=== PATIENT | female | born 1940 | race Hispanic/Latino ===

== ENCOUNTER 2017-10-23 21:17 | Observation (INO) | payer SELFPAY ==
[2017-10-23 21:21] VITALS: BP 171/83; PULSE 120; RESP 20; TEMP 37.4; O2SAT 100
[2017-10-23 22:15] VITALS: BP 159/63; PULSE 110; RESP 18; O2SAT 98
[2017-10-23] MEDS: SODIUM CHLORIDE 0.9% 1,000 ML 1000 ML IV (23:15)
--- NOTE | 2017-10-23 23:15 | DI.RAD.S_ITS ---
PROCEDURE: XR CHEST 1V INDICATIONS: suspected sepsis TECHNIQUE: One view of the chest was acquired. COMPARISON: None. FINDINGS: Surgical changes and devices: None. Lungs and pleura: No pleural effusions or pneumothorax. Lungs are clear. Mediastinum: Mediastinal contours appear normal. Heart size is normal. Aortic calcifications. Bones and chest wall: No suspicious bony lesions. Overlying soft tissues appear unremarkable. IMPRESSION: No acute cardiopulmonary abnormality Dictated by: Sudhir Burton M.D. on 10/24/2017 at 7:57 Approved by: Sudhir Burton M.D. on 10/24/2017 at 7:58
[2017-10-23 23:17] VITALS: BP 176/68; PULSE 107; RESP 22; TEMP 38.4; O2SAT 99
[2017-10-23 23:24] LABS: INR 1.2 (0.9-1.3); Prothrombin Time 13.4 SECONDS (10.1-12.7)
[2017-10-23 23:26] LABS: PTT Partial Thromboplastin Tim 26 SECONDS (26.4-36.2)
[2017-10-23 23:27] LABS: Appearance Urine UA SL CLOUDY; Bilirubin Urine UA NEGATIVE (NEGATIVE); Color Urine UA BROWN; Glucose Urine UA 2+ g/dL (Negative); Ketones Urine UA NEGATIVE (NEGATIVE); Leukocyte Esterase Urine UA 1+ (NEGATIVE); Nitrite Urine UA NEGATIVE (NEGATIVE); Occult Blood Urine UA 3+ (Negative); Protein Urine UA 2+ (Negative); Urobilinogen Urine UA 0.2 E.U./dL (0.2); pH Urine UA 6.5 (4.5-8.0)
[2017-10-23 23:28] LABS: Add Manual Diff / Slide Review NO; Basophils Percent Auto 0.2 % (0-2); Hematocrit 26.9 % (36-46); Hemoglobin 9.1 g/dL (12.0-16.0); Lactate (Lactic Acid) 0.9 mmol/L (0.7-2.1); Lymphocytes Percent Auto 6.6 % (25-40); Mean Corpuscular HGB Conc 33.7 % (30-36); Neutrophils Absolute Auto 13200 /uL (3000-5900); Neutrophils Percent Auto 88.2 % (50-75); Platelet Count 389 X10^3/uL (150-400); Red Blood Cell Count 3.13 X10^6/uL (4.0-5.2); Red Cell Distribution Width 13.8 % (11.6-14.8); White Blood Cell Count 14.9 X10^3/uL (4.5-11.0)
[2017-10-23 23:28] LABS: RBC Urine >100/HPF (0-5/HPF); Squamous Epithelial Cell Urine 0-1 /HPF; WBC Urine 30-100/HPF (0-5/HPF)
[2017-10-23 23:29] LABS: Bacteria Urine Moderate (10-30); Culture Indicated Urine Specimen Cultured
[2017-10-23 23:30] LABS: Alanine Aminotransferase 27 IU/L (9-52); Albumin 3.7 g/dL (3.5-5.0); Alkaline Phosphatase 102 U/L (38-126); Aspartate Aminotransferase 23 IU/L (14-36); BUN Creatinine Ratio 23.6 (6-22); Bilirubin Total 0.4 mg/dL (0.2-1.3); Calcium 8.8 mg/dL (8.4-10.2); Estimated Glomerular Filt Rate 36.4 mL/min (>60); Globulin 3.7 g/dL (1.7-4.1); Glucose 386 mg/dL (80-110); HEMOLYSIS < 15 (0-50); Lipase 69 U/L (23-300); Sodium 126 mmol/L (137-145); Total Protein 7.4 g/dL (6.3-8.2)
[2017-10-23 23:31] LABS: Potassium 5.6 mmol/L (3.4-5.1)
[2017-10-23 23:46] LABS: Procalcitonin 0.08 ng/mL (<0.5)
[2017-10-24] VITALS (23 sets, daily range): BP systolic 92–171; BP diastolic 21–92; PULSE 82–109; RESP 14–20; TEMP 36.4–38.4; O2SAT 85–100; BMI 179.4
--- NOTE | 2017-10-24 00:12 | PC.NURSE ---
Required 2 person assist. Weak and unsteady on feet.
[2017-10-24] MEDS: levoFLOXacin 750 MG/150 ML PIGGYBACK 100 MG IV (00:34)
[2017-10-24] MEDS: ACETAMINOPHEN 325 MG TABLET 975 MG PO (00:35)
--- NOTE | 2017-10-24 01:15 | PC.NURSE ---
daughter also reports fever and confusion today.
[2017-10-24] MEDS: SODIUM CHLORIDE 0.9% 1,000 ML 1000 ML IV ×2 (01:30→05:03)
[2017-10-24 05:30] LABS: Lactate (Lactic Acid) 0.7 mmol/L (0.7-2.1)
[2017-10-24 05:43] LABS: Troponin I 0.022 ng/mL (0.01-0.034)
--- NOTE | 2017-10-24 06:52 | ED.FEMALEGU ---
HPI - Female Genitourinary General Chief complaint: Urogenital-Female Stated complaint: WEAKNESS IN LEGS,PEEING BLOOD,NOT EATING WELL Time Seen by Provider: 10/23/17 22:51 History of Present Illness HPI Narrative: HPI 77-year-old female diabetic presents with mild weakness, confusion, decreased PO intake, and hematuria of uncertain duration. Patient lives alone is unable to provide further meaningful history. Patient is accompanied by her adult daughter to check on her today and found her confused. This was new from baseline. M/S/F/SocHx notable for: please see HPI; remainder reviewed with patient and family.. ROS: Negative constitutional, eye, cardiovascular, pulmonary, GI, , MSK, skin, neurologic, psychiatric, endocrine unless noted in the HPI. Exam Gen: Pleasant, week, mildly confused, but not in extremis. HEENT: NC, AT, PEERL, EOMI, neck supple, no goiter appreciated. Resp: Clear to auscultation bilaterally, normal work of breathing, no accessory muscle usage. Card: Regular rate and rhythm with no murmurs, rubs, or gallops, extremities warm and well perfused. GI: Non-tender to palpation throughout all quadrants, no focal tenderness at McBurney's point, negative Fernandez's sign, non-distended, no rebound or guarding. : No suprapubic tenderness to palpation. MSK: No visible deformities, strength and tone without visually appreciable deficit. Skin: Normal color, no petechiae, buttocks without pressure ulcers, palms and soles visually normal, no further visible lesions. Neuro: alert, no facial asymmetry, vision and hearing WNL. Psych: Mood and affect appropriate. Labs / Imaging (pertinent): WBC 14.1, Hb 9.1, PLT 389, PT/INR 1.2, Na 126, K 5.6, Bilirubin 0.4, Lactate 0.9, troponin 0.022, lipase 69, creatinine 1.40, Pro calcitonin 0.08. UA: moderate bacteria, negative nitrites, 1+ leukocyte esterase, 0-1 squamous epithelial cells. CXR: No acute cardiopulmonary disease process. No focal infiltrate, cardiomegaly, rib fractures, or mediastinal widening, lung markings extend to the periphery bilaterally and there are no deep sulci. Radiologist's read pending. EKG: SR at [address]-segment elevations or depressions, T-wave inversions or new LBBB. MDM Previous chart, nursing note, labs, imaging, and vitals reviewed. A: 77-year-old female diabetic presents with mild weakness, confusion, decreased PO intake, and hematuria of uncertain duration.. Evaluation: Patient meets [facility] sepsis screening guidelines (temperature, leukocyte doses, tachycardia), source as below. Does meet qSOFA criteria with a score of 2. Infectious Source: * Pulmonary: No focal infiltrate on imaging. The absence of significant hypoxemia, tachypnea, or further corroborating symptoms strongly suggests against pneumonia. * Urine: UA consistent with infection * Skin: Consider a cutaneous source unlikely given absence of significant infection appreciated on exam. * CATTLE CARE WORKER: Doubt given the lack of meningismus, petechia, and the overall clinical presentation. * Abdomen: Doubt given the non-tender abdomen and an alternate source. * Spine: Given the absence of back pain and an alternate source further investigation for possible epidural abscess, spinal osteomyelitis, or discitis are not currently warranted. * Lines: Patient without indwelling lines/ports. Resuscitation: * Blood cultures, 2 L NS, and Levaquin ordered with the initial evaluation. * Patient with downtrend blood pressure, 3rd liter normal saline ordered. Patient fluid responsive. * Hydration given for SYED, mild hyperkalemia. Disposition: admitted for further care Impression: urinary tract infection, sepsis, hyponatremia, SYED, mild hyperkalemia (please reference below for remainder of encounter information) Critical Care Time Organ system(s): Cardiopulmonary, vascular, CATTLE CARE WORKER, Renal Intervention: Assessment of the patient, interpretation of studies, communication related to patient care. Time: 30 minutes were spent directly related to patient care exclusive of separately billed procedures The patient is also without evidence of pancreatitis (lipase within clinically acceptable limits), adrenal insufficiency is tentatively considered unlikely as there is no evidence of chronic steroid use, no known adrenal insufficiency and the patient has been without refractory hypotension. Thyroid disease was considered, given the absence of known thyroid disease or goiter on exam, and a tentatively explaining etiology for the patient???s presentation further investigation is not currently indicated. Ingestion/OD are felt to be unlikely given history, absence of significant mydriasis, and lack of appreciated clonus or hyperreflexia, as well as an alternate explaining etiology.The possibility of alcohol, benzodiazepine, opiate withdrawal were considered and while history is limited at this point these do not appear to be contributing. Related Data Home Medications Medication Instructions Recorded Confirmed metformin 500 mg PO BID 10/24/17 10/24/17 Allergies Allergy/AdvReac Type Severity Reaction Status Date / Time No Known Drug Allergies Allergy Verified 10/24/17 00:08 [facility] Medical History Chronic UTI (urinary tract infection) (Acute) Diabetes (Acute) Exam Initial Vital Signs Initial Vital Signs: Vital Signs Temperature 99.3 F 10/23/17 21:21 Pulse Rate 120 H 10/23/17 21:21 Respiratory Rate 20 10/23/17 21:21 Blood Pressure 171/83 H 10/23/17 21:21 Pulse Oximetry 100 10/23/17 21:21 Course Orders Ordered: ED Orders 10/23/17 23:05 Complete Blood Count AUTO DIFF Stat Comprehensive Metabolic Panel Stat Lactate (Lactic Acid) Stat Lipase Stat Partial Thromboplastin Time Stat Procalcitonin Stat Prothrombin Time INR Stat 10/23/17 23:10 Urinalysis and Microscopic Stat Urine Culture Stat 10/23/17 23:15 XR chest 1V Stat 10/23/17 23:24 Blood Culture Stat 10/24/17 04:54 EKG-12 Lead Stat 10/24/17 05:13 Lactate (Lactic Acid) Stat Troponin I Stat Discontinued Medications Acetaminophen (Tylenol) 975 mg PO NOW ONE Stop: 10/24/17 00:28 Last Admin: 10/24/17 00:35 Dose: 975 mg Sodium Chloride (Normal Saline 0.9%) 1,000 mls @ 1,000 mls/hr IV BOLUS ONE Stop: 10/24/17 00:14 Last Infusion: 10/24/17 01:28 Dose: 0 mls/hr Admin: 10/23/17 23:15 Dose: 1,000 mls/hr Levofloxacin (Levaquin) 750 mg in 150 mls @ 100 mls/hr IV NOW ONE Stop: 10/24/17 01:09 Last Infusion: 10/24/17 02:18 Dose: 0 mls/hr Admin: 10/24/17 00:34 Dose: 100 mls/hr Sodium Chloride (Normal Saline 0.9%) 1,000 mls @ 1,000 mls/hr IV BOLUS ONE Stop: 10/24/17 02:27 Last Infusion: 10/24/17 02:35 Dose: 0 mls/hr Admin: 10/24/17 01:30 Dose: 1,000 mls/hr Sodium Chloride (Normal Saline 0.9%) 1,000 mls @ 1,000 mls/hr IV BOLUS ONE Stop: 10/24/17 05:56 Last Admin: 10/24/17 05:03 Dose: 1,000 mls/hr Vital Signs - 8 hr 10/23/17 23:17 10/24/17 00:15 10/24/17 00:29 Temperature 101.1 F H Pulse Rate 107 H 109 H 108 H Respiratory Rate 22 16 16 Blood Pressure Blood Pressure [Right Arm] 176/68 H 160/54 H 160/54 H Pulse Oximetry 99 98 99 10/24/17 00:35 10/24/17 00:37 10/24/17 01:20 Temperature 101.1 F H 101.1 F H 99.7 F H Pulse Rate 108 H 104 H Respiratory Rate 16 16 Blood Pressure 171/83 H Blood Pressure [Right Arm] 155/66 H Pulse Oximetry 99 99 10/24/17 02:03 10/24/17 02:04 10/24/17 02:26 Temperature 99.7 F H Pulse Rate 90 90 Respiratory Rate 16 Blood Pressure Blood Pressure [Right Arm] 92/40 L Pulse Oximetry 95 10/24/17 02:40 10/24/17 03:15 10/24/17 03:45 Temperature Pulse Rate 93 H 93 H 88 Respiratory Rate 16 16 16 Blood Pressure Blood Pressure [Right Arm] 103/60 122/55 H 115/49 L Pulse Oximetry 98 98 98 10/24/17 04:15 10/24/17 05:02 10/24/17 06:37 Temperature Pulse Rate 82 87 90 Respiratory Rate 16 16 16 Blood Pressure Blood Pressure [Right Arm] 101/31 L 93/41 L 115/41 L Pulse Oximetry 98 99 97 MDM - Female Genitourinary Lab Data Result diagrams: 10/23/17 23:05 10/23/17 23:05 Lab Results 10/23/17 10/23/17 10/23/17 Range/Units 23:05 23:05 23:05 WBC 14.9 H (4.5-11.0) X10^3/uL RBC 3.13 L (4.0-5.2) X10^6/uL Hgb 9.1 L (12.0-16.0) g/dL Hct 26.9 L (36-46) % MCV 86.0 (80-100) fL MCH 29.0 (26-34) PG MCHC 33.7 (30-36) % RDW 13.8 (11.6-14.8) % Plt Count 389 (150-400) X10^3/uL Neut % (Auto) 88.2 H (50-75) % Lymph % (Auto) 6.6 L (25-40) % [place] % (Auto) 5.0 (3-14) % Eos % (Auto) 0.0 L (2-4) % Baso % (Auto) 0.2 (0-2) % Neut # (Auto) 32336 H (1771-0760) /uL PT 13.4 H (10.1-12.7) SECONDS INR 1.2 (0.9-1.3) APTT 26 L (26.4-36.2) SECONDS Sodium (137-145) mmol/L Potassium (3.4-5.1) mmol/L Chloride (98-107) mmol/L Carbon Dioxide (22-32) mmol/L BUN (7-17) mg/dL Creatinine (0.52-1.04) mg/dL Estimated GFR (>60) mL/min BUN/Creatinine Ratio (6-22) Glucose (80-110) mg/dL Lactate (0.7-2.1) mmol/L Calcium (8.4-10.2) mg/dL Total Bilirubin (0.2-1.3) mg/dL AST (14-36) IU/L ALT (9-52) IU/L Alkaline Phosphatase (38-126) U/L Troponin I (0.01-0.034) ng/mL Total Protein (6.3-8.2) g/dL Albumin (3.5-5.0) g/dL Globulin (1.7-4.1) g/dL Albumin/Globulin Ratio (1.0-2.8) Lipase (23-300) U/L Procalcitonin 0.08 (<0.5) ng/mL Urine Color Urine Appearance Urine pH (4.5-8.0) Ur Specific [place] (1.000-1.035) Urine Protein (Negative) Urine Glucose (UA) (Negative) g/dL Urine Ketones (NEGATIVE) Urine Occult Blood (Negative) Urine Nitrate (NEGATIVE) Urine Bilirubin (NEGATIVE) Urine Urobilinogen (0.2) E.U./dL Ur Leukocyte Esterase (NEGATIVE) Urine RBC (0-5/HPF) Urine WBC (0-5/HPF) Ur Squamous Epith Cells Urine Bacteria (None) Ur Culture Indicated? Micro UA Comment 10/23/17 10/23/17 10/23/17 Range/Units 23:05 23:05 23:10 WBC (4.5-11.0) X10^3/uL RBC (4.0-5.2) X10^6/uL Hgb (12.0-16.0) g/dL Hct (36-46) % MCV (80-100) fL MCH (26-34) PG MCHC (30-36) % RDW (11.6-14.8) % Plt Count (150-400) X10^3/uL Neut % (Auto) (50-75) % Lymph % (Auto) (25-40) % [place] % (Auto) (3-14) % Eos % (Auto) (2-4) % Baso % (Auto) (0-2) % Neut # (Auto) (3294-7844) /uL PT (10.1-12.7) SECONDS INR (0.9-1.3) APTT (26.4-36.2) SECONDS Sodium 126 L (137-145) mmol/L Potassium 5.6 H (3.4-5.1) mmol/L Chloride 93.0 L (98-107) mmol/L Carbon Dioxide 20.0 L (22-32) mmol/L BUN 33.0 H (7-17) mg/dL Creatinine 1.40 H (0.52-1.04) mg/dL Estimated GFR 36.4 L (>60) mL/min BUN/Creatinine Ratio 23.6 H (6-22) Glucose 386 H (80-110) mg/dL Lactate 0.9 (0.7-2.1) mmol/L Calcium 8.8 (8.4-10.2) mg/dL Total Bilirubin 0.4 (0.2-1.3) mg/dL AST 23 (14-36) IU/L ALT 27 (9-52) IU/L Alkaline Phosphatase 102 (38-126) U/L Troponin I (0.01-0.034) ng/mL Total Protein 7.4 (6.3-8.2) g/dL Albumin 3.7 (3.5-5.0) g/dL Globulin 3.7 (1.7-4.1) g/dL Albumin/Globulin Ratio 1.0 (1.0-2.8) Lipase 69 (23-300) U/L Procalcitonin (<0.5) ng/mL Urine Color Brown Urine Appearance Sl cloudy Urine pH 6.5 (4.5-8.0) Ur Specific [place] 1.010 (1.000-1.035) Urine Protein 2+ H (Negative) Urine Glucose (UA) 2+ H (Negative) g/dL Urine Ketones Negative (NEGATIVE) Urine Occult Blood 3+ H (Negative) Urine Nitrate Negative (NEGATIVE) Urine Bilirubin Negative (NEGATIVE) Urine Urobilinogen 0.2 (0.2) E.U./dL Ur Leukocyte Esterase 1+ H (NEGATIVE) Urine RBC >100/hpf H (0-5/HPF) Urine WBC 30-100/hpf H (0-5/HPF) Ur Squamous Epith Cells 0-1 /hpf Urine Bacteria Moderate (10-30) H (None) Ur Culture Indicated? Specimen cultured Micro UA Comment Not Reportable 18 10/24/17 Range/Units 05:13 05:13 WBC (4.5-11.0) X10^3/uL RBC (4.0-5.2) X10^6/uL Hgb (12.0-16.0) g/dL Hct (36-46) % MCV (80-100) fL MCH (26-34) PG MCHC (30-36) % RDW (11.6-14.8) % Plt Count (150-400) X10^3/uL Neut % (Auto) (50-75) % Lymph % (Auto) (25-40) % [place] % (Auto) (3-14) % Eos % (Auto) (2-4) % Baso % (Auto) (0-2) % Neut # (Auto) (7253-2650) /uL PT (10.1-12.7) SECONDS INR (0.9-1.3) APTT (26.4-36.2) SECONDS Sodium (137-145) mmol/L Potassium (3.4-5.1) mmol/L Chloride (98-107) mmol/L Carbon Dioxide (22-32) mmol/L BUN (7-17) mg/dL Creatinine (0.52-1.04) mg/dL Estimated GFR (>60) mL/min BUN/Creatinine Ratio (6-22) Glucose (80-110) mg/dL Lactate 0.7 (0.7-2.1) mmol/L Calcium (8.4-10.2) mg/dL Total Bilirubin (0.2-1.3) mg/dL AST (14-36) IU/L ALT (9-52) IU/L Alkaline Phosphatase (38-126) U/L Troponin I 0.022 (0.01-0.034) ng/mL Total Protein (6.3-8.2) g/dL Albumin (3.5-5.0) g/dL Globulin (1.7-4.1) g/dL Albumin/Globulin Ratio (1.0-2.8) Lipase (23-300) U/L Procalcitonin (<0.5) ng/mL Urine Color Urine Appearance Urine pH (4.5-8.0) Ur Specific [place] (1.000-1.035) Urine Protein (Negative) Urine Glucose (UA) (Negative) g/dL Urine Ketones (NEGATIVE) Urine Occult Blood (Negative) Urine Nitrate (NEGATIVE) Urine Bilirubin (NEGATIVE) Urine Urobilinogen (0.2) E.U./dL Ur Leukocyte Esterase (NEGATIVE) Urine RBC (0-5/HPF) Urine WBC (0-5/HPF) Ur Squamous Epith Cells Urine Bacteria (None) Ur Culture Indicated? Micro UA Comment Discharge Plan Departure Prescriptions: No Action metformin 500 mg Tablet 500 mg PO BID RF: 0
--- NOTE | 2017-10-24 09:56 | PC.NURSE ---
Addendum entered by Eliane Meyers R.N. 10/24/17 13:58: VITALS - given 650mg po tylenol after noted to have temp 100.4, removed x 2 extra blankets. Original Note: Addendum entered by Eliane Meyers R.N. 10/24/17 13:13: [facility]/TERESA - in and new orders rec'd, ivf and abx started, cbg 246, explained insulin SS to pt and dtr and wills, pt was incont large qty urine, brief changed and erich care provided. Original Note: Addendum entered by Eliane Meyers R.N. 10/24/17 13:02: PAIN - continues to state no discomfort, pt understands a Original Note: ADMISSION - pt arrived via [place] from ER, no pain, incont urine, pericare performed, placed in brief, pt is sami speaking, dtr at bedside to assist with translation, cbg 285 on arrival.
--- NOTE | 2017-10-24 10:58 | P.HP_ITS ---
History of Present Illness Chief complaint: Acute UTI, Sepsis Narrative: Claudine Rm is a 77 year old female visiting from [place]. She is visiting her family here she has been here for several months and is planning to return on November 04 she actually has a plane reservation already. She started having symptoms of frequency of urination fevers and increased confusion at home. Family brought her in here to the emergency room for evaluation and was found to have a urinary tract infection. She had her blood pressure dropped into the 80s and 90s for a while in the ER but was responsive to IV fluid resuscitation. She is more awake and alert now. She has been having fevers at home and some fevers here in the ER and here on the floor. Patient History Medical History Chronic UTI (urinary tract infection) (Acute) Diabetes (Acute) Cataract (Acute) Hernia of abdominal cavity (Acute) Tobacco & Substance Use Smoking Status: Never smoker Alcohol intake: never Meds Home Medications Medication Instructions Recorded Confirmed Type ketorolac 10 mg PO Q6H PRN 10/24/17 10/24/17 History metformin 500 mg PO BID 10/24/17 10/24/17 History Allergies Allergy/AdvReac Type Severity Reaction Status Date / Time No Known Drug Allergies Allergy Verified 10/24/17 09:29 Review of Systems Review of Systems All systems reviewed & are unremarkable except as noted in HPI and below Exam Vital Signs (past 8 hours): Vital Signs - 8 hr 3 10/24/17 03:15 10/24/17 03:45 10/24/17 04:15 Temperature Pulse Rate 93 H 88 82 Respiratory Rate 16 16 16 Blood Pressure Blood Pressure [Right Arm] 122/55 H 115/49 L 101/31 L Pulse Oximetry 98 98 98 3 10/24/17 05:02 10/24/17 06:37 10/24/17 07:18 Temperature Pulse Rate 87 90 87 Respiratory Rate 16 16 16 Blood Pressure Blood Pressure [Right Arm] 93/41 L 115/41 L 116/59 L Pulse Oximetry 99 97 85 L 3 10/24/17 08:49 10/24/17 08:59 10/24/17 09:20 Temperature 98.1 F Pulse Rate 93 H 95 H 98 H Respiratory Rate 14 18 20 Blood Pressure 132/21 H 142/67 H Blood Pressure [Right Arm] 132/21 H Pulse Oximetry 100 100 98 Pulse Oximetry 98 Oxygen Delivery Method Room Air Narrative Exam Narrative: She is resting comfortably she is more alert her daughter is here to interpret HEENT exam unremarkable oral mucosa dry Neck supple Lungs clear Heart tachycardic Abdomen soft nontender Lower extremities trace edema Neuro exam awake alert confusion has resolved No focal deficits Objective Labs Result Diagrams: 10/23/17 23:05 10/23/17 23:05 Labs: Laboratory Results - last 24 hr 10/23/17 10/23/17 10/23/17 23:05 23:05 23:05 WBC 14.9 H RBC 3.13 L Hgb 9.1 L Hct 26.9 L MCV 86.0 MCH 29.0 MCHC 33.7 RDW 13.8 Plt Count 389 Neut % (Auto) 88.2 H Lymph % (Auto) 6.6 L [place] % (Auto) 5.0 Eos % (Auto) 0.0 L Baso % (Auto) 0.2 Neut # (Auto) 10564 H PT 13.4 H INR 1.2 APTT 26 L Sodium Potassium Chloride Carbon Dioxide BUN Creatinine Estimated GFR BUN/Creatinine Ratio Glucose Lactate Calcium Total Bilirubin AST ALT Alkaline Phosphatase Troponin I Total Protein Albumin Globulin Albumin/Globulin Ratio Lipase Procalcitonin 0.08 Urine Color Urine Appearance Urine pH Ur Specific [place] Urine Protein Urine Glucose (UA) Urine Ketones Urine Occult Blood Urine Nitrate Urine Bilirubin Urine Urobilinogen Ur Leukocyte Esterase Urine RBC Urine WBC Ur Squamous Epith Cells Urine Bacteria Ur Culture Indicated? Micro UA Comment 10/23/17 10/23/17 10/23/17 23:05 23:05 23:10 WBC RBC Hgb Hct MCV MCH MCHC RDW Plt Count Neut % (Auto) Lymph % (Auto) [place] % (Auto) Eos % (Auto) Baso % (Auto) Neut # (Auto) PT INR APTT Sodium 126 L Potassium 5.6 H Chloride 93.0 L Carbon Dioxide 20.0 L BUN 33.0 H Creatinine 1.40 H Estimated GFR 36.4 L BUN/Creatinine Ratio 23.6 H Glucose 386 H Lactate 0.9 Calcium 8.8 Total Bilirubin 0.4 AST 23 ALT 27 Alkaline Phosphatase 102 Troponin I Total Protein 7.4 Albumin 3.7 Globulin 3.7 Albumin/Globulin Ratio 1.0 Lipase 69 Procalcitonin Urine Color Brown Urine Appearance Sl cloudy Urine pH 6.5 Ur Specific [place] 1.010 Urine Protein 2+ H Urine Glucose (UA) 2+ H Urine Ketones Negative Urine Occult Blood 3+ H Urine Nitrate Negative Urine Bilirubin Negative Urine Urobilinogen 0.2 Ur Leukocyte Esterase 1+ H Urine RBC >100/hpf H Urine WBC 30-100/hpf H Ur Squamous Epith Cells 0-1 /hpf Urine Bacteria Moderate (10-30) H Ur Culture Indicated? Specimen cultured Micro UA Comment Not Reportable 10/24/17 10/24/17 05:13 05:13 WBC RBC Hgb Hct MCV MCH MCHC RDW Plt Count Neut % (Auto) Lymph % (Auto) [place] % (Auto) Eos % (Auto) Baso % (Auto) Neut # (Auto) PT INR APTT Sodium Potassium Chloride Carbon Dioxide BUN Creatinine Estimated GFR BUN/Creatinine Ratio Glucose Lactate 0.7 Calcium Total Bilirubin AST ALT Alkaline Phosphatase Troponin I 0.022 Total Protein Albumin Globulin Albumin/Globulin Ratio Lipase Procalcitonin Urine Color Urine Appearance Urine pH Ur Specific [place] Urine Protein Urine Glucose (UA) Urine Ketones Urine Occult Blood Urine Nitrate Urine Bilirubin Urine Urobilinogen Ur Leukocyte Esterase Urine RBC Urine WBC Ur Squamous Epith Cells Urine Bacteria Ur Culture Indicated? Micro UA Comment Assessment & Plan Plan: Plan: Urinary tract infection plan to culture urine and blood plan to place on IV fluids IV antibiotics. She seems to be responding already to treatment 2. Confusion most likely secondary to the infection also now improved with the treatment 3. Dehydration and hyponatremia secondary to poor intake from that infection IV fluids for now 4. Diabetes type 2 she has been on metformin that will continue and will place her on as needed insulin. Disposition I anticipate her probably only be here [address] her on observation status I think that she probably will improve enough over the next 24 hr to go home. Quality VTE Deep Vein Thrombosis/Pulmonary Embolism Present on Admission: No
[2017-10-24] MEDS: SODIUM CHLORIDE 0.45% 1,000 ML 100 ML IV (12:07)
[2017-10-24] MEDS: ENOXAPARIN 40 MG/0.4 ML SYRINGE SUBCUT (12:08)
[2017-10-24] MEDS: levoFLOXacin 500 MG/100 ML PIGGYBACK 100 MG IV (12:09)
[2017-10-24] MEDS: INSULIN ASPART 100 UNIT/ML INSULN PEN SUBCUT ×3 (12:15→20:59)
[2017-10-24] MEDS: ACETAMINOPHEN 325 MG TABLET 650 MG PO (13:53)
[2017-10-24] MEDS: METFORMIN HCL 500 MG TABLET PO (17:08)
[2017-10-25] VITALS (15 sets, daily range): BP systolic 141–189; BP diastolic 68–86; PULSE 74–127; RESP 16–20; TEMP 36.1–39.2; O2SAT 94–100
[2017-10-25] MEDS: ACETAMINOPHEN 325 MG TABLET 650 MG PO ×2 (00:06→19:29)
[2017-10-25] MEDS: ONDANSETRON 4 MG/2 ML INJ IV (00:06)
--- NOTE | 2017-10-25 02:39 | PC.NURSE ---
Addendum entered by Kiki Springer R.N. 10/25/17 06:28: @ 0430, temp decreased to 98.5F orally, @ 0600, pulse rate 86. Pt denies pain, discomfort, nausea. Slept on/off htroughout shift, daughter Pam remains in room to translate. Original Note: LEATHER SORTER-Pt primarily [place] speaking, daughter Pam at bedside throughout night to translate. Pt denies chest pain, overall pain, respiratory distress. Pt OOB to BSC with 2PA, became very weak to lower legs, assisted back to bed with pivot transfer. Pt became nauseated, Zofran IV given at 0010 with good effect upon reassessment. Manual BP taken to [facility] for 144/92 as unable to obtain accurate BP using automated cuff. HR 120bpm & regular upon auscultation. Upon reassessment HR now 105. O2 96-97% on RA. Temp at 2400 was 99.9F orally, Tylenol po prn given at 0010. Pt stated feeling cold & shaking to upper extremities. Has 3 extra blankets on. Reassessment at 0125, temp 102.6F orally, removed several blankets. Reassessed at 0220 for temp of 100.6F orally, pt had been found with no blankets on. Will continue to monitor. IVF infusing well to right AC PIV per order. Pt has small left elbow abrasion that is intact, no drainage noted.
[2017-10-25 06:24] LABS: Add Manual Diff / Slide Review NO; Basophils Percent Auto 0.3 % (0-2); Eosinophils Percent Auto 0.1 % (2-4); Hemoglobin 7.5 g/dL (12.0-16.0); Lymphocytes Percent Auto 7.8 % (25-40); Mean Corpuscular HGB Conc 33.8 % (30-36); Mean Corpuscular Hemoglobin 29.2 PG (26-34); Mean Corpuscular Volume 86.4 fL (80-100); Neutrophils Absolute Auto 17300 /uL (3000-5900); Neutrophils Percent Auto 86.8 % (50-75); Platelet Count 321 X10^3/uL (150-400); Red Blood Cell Count 2.55 X10^6/uL (4.0-5.2); Red Cell Distribution Width 14.2 % (11.6-14.8)
[2017-10-25 06:34] LABS: Alanine Aminotransferase 23 IU/L (9-52); Albumin 2.6 g/dL (3.5-5.0); Albumin Globulin Ratio 0.8 (1.0-2.8); Alkaline Phosphatase 65 U/L (38-126); Aspartate Aminotransferase 25 IU/L (14-36); Bilirubin Total 0.3 mg/dL (0.2-1.3); Calcium 7.7 mg/dL (8.4-10.2); Globulin 3.3 g/dL (1.7-4.1); Glucose 135 mg/dL (80-110); HEMOLYSIS 35 (0-50); Potassium 4.8 mmol/L (3.4-5.1); Sodium 129 mmol/L (137-145); Total Protein 5.9 g/dL (6.3-8.2)
[2017-10-25] MEDS: INSULIN ASPART 100 UNIT/ML INSULN PEN SUBCUT ×3 (08:14→19:07)
[2017-10-25] MEDS: METFORMIN HCL 500 MG TABLET PO ×2 (08:14→19:25)
[2017-10-25] MEDS: ENOXAPARIN 40 MG/0.4 ML SYRINGE SUBCUT (08:14)
--- NOTE | 2017-10-25 08:20 | PM.PN.1 ---
Subjective Interval history: The patient had fever to 102.5 overnight. She has been feeling weak and has not yet gotten out of bed due to weakness. Exam Vital Signs (past 8 hours): Vital Signs - 8 hr 10/25/17 01:25 10/25/17 01:30 10/25/17 02:19 Temperature 102.6 F H 102.6 F H 100.5 F H Pulse Rate 117 H 106 H Respiratory Rate Blood Pressure Pulse Oximetry 97 97 10/25/17 04:31 10/25/17 06:12 Temperature 98.5 F Pulse Rate 95 H 86 Respiratory Rate 18 Blood Pressure 155/76 H Pulse Oximetry 98 99 Pulse Oximetry 99 Oxygen Delivery Method Room Air Oxygen Flow Rate 0 Narrative Exam Narrative: General: Patient appears weak, fatigued. Translation is provided by her daughter at bedside HEENT: Mucous membranes pink and moist Neck: Supple Lungs: Clear to auscultation Cardiac: Tachycardic, regular, without appreciable murmur Abdomen: Soft, nontender Back: No costovertebral angle tenderness Extremities: Without edema, no calf tenderness or swelling Objective Labs Result Diagrams: 10/25/17 05:56 10/25/17 05:56 Labs: Laboratory Results - last 24 hr 10/25/17 10/25/17 05:56 05:56 WBC 20.0 H RBC 2.55 L Hgb 7.5 L Hct 22.0 L MCV 86.4 MCH 29.2 MCHC 33.8 RDW 14.2 Plt Count 321 Neut % (Auto) 86.8 H Lymph % (Auto) 7.8 L [place] % (Auto) 5.0 Eos % (Auto) 0.1 L Baso % (Auto) 0.3 Neut # (Auto) 74568 H Sodium 129 L Potassium 4.8 Chloride 101.0 Carbon Dioxide 18.0 L BUN 22.0 H Creatinine 1.10 H Estimated GFR 48.0 L BUN/Creatinine Ratio 20.0 Glucose 135 H D Calcium 7.7 L Total Bilirubin 0.3 AST 25 ALT 23 Alkaline Phosphatase 65 Total Protein 5.9 L Albumin 2.6 L Globulin 3.3 Albumin/Globulin Ratio 0.8 L Assessment & Plan Plan: Plan: 1. Urinary tract infection. Culture negative to date. Follow cultures and continue IV antibiotics. Appears to be improving. 2. Metabolic encephalopathy due to infection. Improved with treatment. 3. Sepsis with fever, leukocytosis, tachycardia and metabolic encephalopathy. Continue to monitor with treatment. Decrease IV fluids. 4. Anemia, likely due to inflammatory block and hemodilution. Her daughter also notes a previous history of anemia. 5. Dehydration and hyponatremia, improved. Decrease IV fluids to 50 mL/hour. 6. Diabetes mellitus, type 2. Severe hyperglycemia due to infection improved. Continue metformin and blood sugar sliding scale coverage. Blood sugars are down from the 400 range on admission to 165 this morning. 7. DVT prophylaxis: Continue Lovenox. 8. She is improved but remains persistently weak. Likely discharge home tomorrow. Consult physical therapy. She and her daughter are agreeable with this plan of care. Quality VTE Deep Vein Thrombosis/Pulmonary Embolism Present on Admission: No
--- NOTE | 2017-10-25 08:26 | P.PN_ITS ---
Subjective Interval history: The patient had fever to 102.5 overnight. She has been feeling weak and has not yet gotten out of bed due to weakness. Exam Vital Signs (past 8 hours): Vital Signs - 8 hr 3 10/25/17 01:25 10/25/17 01:30 10/25/17 02:19 Temperature 102.6 F H 102.6 F H 100.5 F H Pulse Rate 117 H 106 H Respiratory Rate Blood Pressure Pulse Oximetry 97 97 3 10/25/17 04:31 10/25/17 06:12 Temperature 98.5 F Pulse Rate 95 H 86 Respiratory Rate 18 Blood Pressure 155/76 H Pulse Oximetry 98 99 Pulse Oximetry 99 Oxygen Delivery Method Room Air Oxygen Flow Rate 0 Narrative Exam Narrative: General: Patient appears weak, fatigued. Translation is provided by her daughter at bedside HEENT: Mucous membranes pink and moist Neck: Supple Lungs: Clear to auscultation Cardiac: Tachycardic, regular, without appreciable murmur Abdomen: Soft, nontender Back: No costovertebral angle tenderness Extremities: Without edema, no calf tenderness or swelling Objective Labs Result Diagrams: 10/25/17 05:56 10/25/17 05:56 Labs: Laboratory Results - last 24 hr 10/25/17 10/25/17 05:56 05:56 WBC 20.0 H RBC 2.55 L Hgb 7.5 L Hct 22.0 L MCV 86.4 MCH 29.2 MCHC 33.8 RDW 14.2 Plt Count 321 Neut % (Auto) 86.8 H Lymph % (Auto) 7.8 L [place] % (Auto) 5.0 Eos % (Auto) 0.1 L Baso % (Auto) 0.3 Neut # (Auto) 30665 H Sodium 129 L Potassium 4.8 Chloride 101.0 Carbon Dioxide 18.0 L BUN 22.0 H Creatinine 1.10 H Estimated GFR 48.0 L BUN/Creatinine Ratio 20.0 Glucose 135 H D Calcium 7.7 L Total Bilirubin 0.3 AST 25 ALT 23 Alkaline Phosphatase 65 Total Protein 5.9 L Albumin 2.6 L Globulin 3.3 Albumin/Globulin Ratio 0.8 L Assessment & Plan Plan: Plan: 1. Urinary tract infection. Culture negative to date. Follow cultures and continue IV antibiotics. Appears to be improving. 2. Metabolic encephalopathy due to infection. Improved with treatment. 3. Sepsis with fever, leukocytosis, tachycardia and metabolic encephalopathy. Continue to monitor with treatment. Decrease IV fluids. 4. Anemia, likely due to inflammatory block and hemodilution. Her daughter also notes a previous history of anemia. 5. Dehydration and hyponatremia, improved. Decrease IV fluids to 50 mL/hour. 6. Diabetes mellitus, type 2. Severe hyperglycemia due to infection improved. Continue metformin and blood sugar sliding scale coverage. Blood sugars are down from the 400 range on admission to 165 this morning. 7. DVT prophylaxis: Continue Lovenox. 8. She is improved but remains persistently weak. Likely discharge home tomorrow. Consult physical therapy. She and her daughter are agreeable with this plan of care. Quality VTE Deep Vein Thrombosis/Pulmonary Embolism Present on Admission: No
--- NOTE | 2017-10-25 11:27 | PT.IIE ---
Physical Therapy Inpatient Evaluation/Re-Eval M1 PT/OT-IP Prior Functional Status Start: 10/25/17 11:07 Freq: NEEDED Status: Active Protocol: Document 10/25/17 11:08 IJS (Rec: 10/25/17 11:27 IJS [email or web address]) Medical Review Prior Functional Status Medical History Reviewed Yes Diet/Fluid Consistency Regular Communication Slovenian speaking does not understand [place]ican her daughter was present to interpret. Mobility and Gait Independent without assistive device. Activities of Daily Living and IADL's Independent Prior Functional Level (Other details) Travels between [place] and to visit family throughout the year. Social History Household Members family Living Arrangements House Home Environment Ramp Home Equipment Front Wheel Walker Employment Status Retired M2 PT-IP Current Condition Start: 10/25/17 11:07 Freq: NEEDED Status: Active Protocol: Document 10/25/17 11:08 IJS (Rec: 10/25/17 11:27 IJS [email or web address]) Physical Therapy Current Condition Current Condition Evaluation Date 10/25/17 Treatment Diagnosis Weakness from prolonged bed mobility Onset Date Admitted 10-24-17 throught ER with confusion, weakness secondary to UTI Weight Bearing Status Weight Bearing Status Full Weight Bearing M3 PT-IP Subjective Start: 10/25/17 11:07 Freq: NEEDED Status: Active Protocol: Document 10/25/17 11:08 IJS (Rec: 10/25/17 11:27 IJS [email or web address]) Subjective Physical Therapy Visit Type Type Initial Evaluation Visit Start Time 10:30 Visit Stop Time 11:00 Total Visit Minutes 30 Notes Provided with water after treatment with nursing approval. Number of PRODUCE DEPARTMENT MANAGER Visits 0 Physical Therapy Visit Comments Patient Comments Feeling much better today, wants to return home. Patient/Caregiver Goals Daughter very supportive and helpful with communication. M4 PT-IP Mobility and Gait Start: 10/25/17 11:07 Freq: NEEDED Status: Active Protocol: Document 10/25/17 11:08 IJS (Rec: 10/25/17 11:27 IJS [email or web address]) PT-Bed Mobility Assessment Scooting Scooting to Edge of Bed Independent PT-Transfer Assessment Sit to and From Stand Sit to and from Stand Independent Equipment Transfer Assistive Device Front Wheeled Walker Transfers Transfer Destination Chair Transfer Technique Stand Step Pivot Transfer Ability Level of Assist Standby Assistance Comments Mobility Comments Patient was up in the chair when PT arrived with assist from nursing. Bed mobility not observed. Gait Assessment Gait Gait Assistance Required: Standby Assistance Distance (Feet) (feet) 125 Able to Maintain Weight Bearing Status Yes During Gait Assistive Devices Assistive Device Front Wheeled Walker Gait Deviations General Gait Pattern Within Normal Limits Comments Gait Comments Fearful of not using the walker at this time secondary to feeling weak and does not want to fall. PT-Balance Assessment Sitting Balance and Reactions Static Sitting Balance Ability Normal Dynamic Sitting Balance Ability Good Standing Balance and Reactions Static Standing Balance Ability Good Dynamic Standing Balance Ability Good M5 PT-IP Objective Assessments Start: 10/25/17 11:07 Freq: NEEDED Status: Active Protocol: Document 10/25/17 11:08 IJS (Rec: 10/25/17 11:27 IJS [email or web address]) Orientation Orientation/Cognition Level of Alertness Alert Orientation Name Place Situation Safety Awareness Understands Safety Issues Comments Does not understand [place]ican well. Gross Range of Motion Upper Extremity ROM Assessment Within Functional Limits Lower Extremity ROM Assessment Within Functional Limits Strength Upper Extremity Strength Assessment Within Functional Limits Lower Extremity Strength Assessment Within Functional Limits Coordination Assessment Gross Coordination Gross Coordination WNL Sensation Assessment Sensation Gross Sensation WNL Light Touch Intact Proprioception (Position) Intact Muscle Tone Muscle Tone WNL Yes M6 PT-IP Treatment Start: 10/25/17 11:07 Freq: NEEDED Status: Active Protocol: Document 10/25/17 11:08 IJS (Rec: 10/25/17 11:27 IJS [email or web address]) Physical Therapy Treatment Exercises Exercises Ankle Pumps Seated Knee Flexion/Extension Shoulder Flexion M7 PT-IP Assessment and Plan Start: 10/25/17 11:07 Freq: NEEDED Status: Active Protocol: Document 10/25/17 11:08 IJS (Rec: 10/25/17 11:27 IJS [email or web address]) PT Summary Assessment and Plan Potential Rehabilitation Potential Excellent Status of Condition at Evaluation Stable Summary Impairments Activity Tolerance Assessment Summary Fatugued after gait but stable and tolerated well. Will be safe for return home when medically stable. Hct 22 low (36-46), Hgb 7.5 low (12-16) this is lower than yesterday labs. BP 116/57, 02 sat on RA 100%. Goals Bed Mobility Goal Independent Transfer Goal Independent Gait Goal Independent Days to Meet Goals 1 Frequency of Treatment Frequency Of Treatment Twice a Day Treatment Plan Physical Therapy Treatment Plan Bed Mobility Training Transfer Training Gait Training Therapeutic Exercise Balance Retraining Other Recommendations and Next Treatment Work on balance as prior Focus functional level was gait without the need for assistive device. Recommendations To Nursing Amount of Assist Needed Standby Assistance Discharge Recommendations PT Discharge Recommendations Home Equipment Needed for Home Before Has a walker at home for use Discharge if needed. Scheduled to return to [place] first part of November. Visit Care Team Role Provider Type Ken Kaur MD Emergency Provider Physician Murali Araujo MD Admit Provider Physician Attending Provider Other Providers Medical History (Last Updated 10/24/17 @ 09:29 by Mary Carney RN) Chronic UTI (urinary tract infection) (Acute) Diabetes (Acute) Cataract (Acute) Hernia of abdominal cavity (Acute)
[2017-10-25] MEDS: levoFLOXacin 500 MG/100 ML PIGGYBACK 100 MG IV (11:46)
[2017-10-25] MEDS: SODIUM CHLORIDE 0.45% 1,000 ML 100 ML IV ×2 (11:46)
--- NOTE | 2017-10-25 12:51 | PT.IPTN ---
Physical Therapy Treatment Note M2 PT-IP Current Condition Start: 10/25/17 11:07 Freq: NEEDED Status: Active Protocol: Document 10/25/17 11:08 IJS (Rec: 10/25/17 11:27 IJS [email or web address]) Physical Therapy Current Condition Current Condition Evaluation Date 10/25/17 Treatment Diagnosis Weakness from prolonged bed mobility Onset Date Admitted 10-24-17 throught ER with confusion, weakness secondary to UTI Weight Bearing Status Weight Bearing Status Full Weight Bearing M3 PT-IP Subjective Start: 10/25/17 11:07 Freq: NEEDED Status: Active Protocol: Document 10/25/17 12:45 AB (Rec: 10/25/17 12:51 AB [email or web address]) Subjective Physical Therapy Visit Type Type Treatment Note Visit Start Time 09:28 Visit Stop Time 10:01 Total Visit Minutes 33 Number of SKIDDER LEVER OPERATOR Visits 0 Physical Therapy Visit Comments Patient Comments pt requested to use the toilet M4 PT-IP Mobility and Gait Start: 10/25/17 11:07 Freq: NEEDED Status: Active Protocol: Document 10/25/17 12:45 AB (Rec: 10/25/17 12:51 AB [email or web address]) PT-Bed Mobility Assessment Supine to Sit Supine to Sit Maximum Assistance PT-Transfer Assessment Sit to and From Stand Sit to and from Stand Minimal Assistance Equipment Transfer Assistive Device Gait Belt Front Wheeled Walker Gait Assessment Gait Gait Assistance Required: Moderate Assistance Distance (Feet) (feet) 20 Assistive Devices Assistive Device Gait Belt Front Wheeled Walker Gait Deviations General Gait Pattern Antalgic Decreased Stride Length Decreased Feet Clearance Factors Limiting Gait Function Factors Limiting Gait Function Decreased Activity Tolerance Decreased Strength Poor Balance M5 PT-IP Objective Assessments Start: 10/25/17 11:07 Freq: NEEDED Status: Active Protocol: Document 10/25/17 11:08 IJS (Rec: 10/25/17 11:27 IJS [email or web address]) Orientation Orientation/Cognition Level of Alertness Alert Orientation Name Place Situation Safety Awareness Understands Safety Issues Comments Does not understand Estonian well. Gross Range of Motion Upper Extremity ROM Assessment Within Functional Limits Lower Extremity ROM Assessment Within Functional Limits Strength Upper Extremity Strength Assessment Within Functional Limits Lower Extremity Strength Assessment Within Functional Limits Coordination Assessment Gross Coordination Gross Coordination WNL Sensation Assessment Sensation Gross Sensation WNL Light Touch Intact Proprioception (Position) Intact Muscle Tone Muscle Tone WNL Yes M6 PT-IP Treatment Start: 10/25/17 11:07 Freq: NEEDED Status: Active Protocol: Document 10/25/17 11:08 IJS (Rec: 10/25/17 11:27 IJS [email or web address]) Physical Therapy Treatment Exercises Exercises Ankle Pumps Seated Knee Flexion/Extension Shoulder Flexion M7 PT-IP Assessment and Plan Start: 10/25/17 11:07 Freq: NEEDED Status: Active Protocol: Document 10/25/17 12:45 AB (Rec: 10/25/17 12:51 AB [email or web address]) PT Summary Assessment and Plan Potential Rehabilitation Potential Good Summary Impairments Strength Balance Bed Mobility Transfers Gait Activity Tolerance Progress Towards Goals Slow Progress due to Medical Issues Assessment Summary pt requires one person assist with mobility and will likely improve during hospital stay. Goals Bed Mobility Goal Independent Transfer Goal Independent Gait Goal Independent Days to Meet Goals 1 Frequency of Treatment Frequency Of Treatment Twice a Day Treatment Plan Physical Therapy Treatment Plan Bed Mobility Training Transfer Training Gait Training Therapeutic Exercise Balance Retraining Other Recommendations and Next Treatment Work on balance as prior Focus functional level was gait without the need for assistive device. Recommendations To Nursing Amount of Assist Needed 1 Person Assist
[2017-10-25] MEDS: levoFLOXacin 500 MG TABLET PO (21:48)
[2017-10-26 00:37] VITALS: BP 139/65; PULSE 94; RESP 16; TEMP 36.7
[2017-10-26 01:10] VITALS: O2SAT 100
[2017-10-26] MEDS: ACETAMINOPHEN 325 MG TABLET 650 MG PO (03:13)
[2017-10-26 05:39] VITALS: BP 161/73; PULSE 89; RESP 16; TEMP 36.6; O2SAT 99
[2017-10-26 06:16] LABS: Add Manual Diff / Slide Review NO; Basophils Percent Auto 0.2 % (0-2); Eosinophils Percent Auto 0.5 % (2-4); Hematocrit 22.4 % (36-46); Hemoglobin 7.8 g/dL (12.0-16.0); Lymphocytes Percent Auto 10.3 % (25-40); Mean Corpuscular HGB Conc 34.8 % (30-36); Mean Corpuscular Hemoglobin 29.6 PG (26-34); Mean Corpuscular Volume 85.1 fL (80-100); Monocytes Percent Auto 5.4 % (3-14); Neutrophils Absolute Auto 12600 /uL (3000-5900); Neutrophils Percent Auto 83.6 % (50-75); Platelet Count 345 X10^3/uL (150-400); Red Blood Cell Count 2.63 X10^6/uL (4.0-5.2); Red Cell Distribution Width 14.1 % (11.6-14.8); White Blood Cell Count 15.1 X10^3/uL (4.5-11.0)
[2017-10-26 06:24] LABS: BUN Creatinine Ratio 19.1 (6-22); Calcium 8.1 mg/dL (8.4-10.2); Glucose 160 mg/dL (80-110); HEMOLYSIS < 15 (0-50); Potassium 4.8 mmol/L (3.4-5.1); Sodium 127 mmol/L (137-145)
[2017-10-26 07:00] VITALS: O2SAT 96
--- NOTE | 2017-10-26 07:37 | PC.NURSE ---
pt's urine was pink with dark red small clots; however, by the end of the shift, pt's urine became dark red color(like red wine color) with small clots. Medicated pt with tylenol for pain. pt currently denies pain.
[2017-10-26 07:38] VITALS: BP 165/88; PULSE 91; RESP 16; TEMP 36.7; O2SAT 98
[2017-10-26] MEDS: levoFLOXacin 500 MG TABLET PO (08:02)
[2017-10-26] MEDS: METFORMIN HCL 500 MG TABLET PO (08:02)
[2017-10-26] MEDS: INSULIN ASPART 100 UNIT/ML INSULN PEN SUBCUT (08:04)
--- NOTE | 2017-10-26 08:43 | PC.NURSE ---
0800 Pt OOB to [facility] w/assist of one. Pt inc in the brief and voided in the toilet as well. Urine is clear/red. Pt moving slowly w/use of walker, dtr at bedside.[id number] Updated the POSTAL CLERK of AM assessment.
--- NOTE | 2017-10-26 09:29 | P.DS_ITS ---
History of Present Illness Chief complaint: Acute UTI, Sepsis, Diabetes Narrative: Claudine Rm is a 77 year old female visiting from [place]. She is visiting her family here she has been here for several months and is planning to return on November 04 she actually has a plane reservation already. She started having symptoms of frequency of urination fevers and increased confusion at home. Family brought her in here to the emergency room for evaluation and was found to have a urinary tract infection She had her blood pressure dropped into the 80s and 90s for a while in the ER but was responsive to IV fluid resuscitation. She has been having fevers at home and some fevers here in the ER and here on the floor. Discharge Providers Date of admission: 10/24/17 07:33 Consults: 10/24/17 06:53 Consult to Physician Routine Comment: Consulting Provider: Murali Araujo Reason for consultation: UTI, sepsis Has provider been notified: Yes 10/25/17 08:20 Consult to Physical Therapy Evaluate & Treat Comment: weakness Physician Instructions: Evaluate and Treat Discharge provider: DERECK Saxena Summary Discharge Diagnosis: Acute Urinary Tract Infection, Sepsis, Diabetes, Chronic Urinary Tract Infection, Chronic anemia Hospital Course: Uncomplicated hospital course . After blood and urine cultures were obtained, she was started on IV Levaquin and IV fluids. Blood cultures negative x48 hours but the urine culture revealed gram neg Morganella morgannii which was sensitive to Levaquin. The patient had a fever or 102.6 during hospitalization but has remained afebrile >24 hours. WBC count max at 20.0. She has had a decreased appetite since admission but has remained well hydrated. She continutes to have mild hematuria but denies spams or painful urination. 1. Urinary tract infection: Treated with IV Levaquin and will continue on 10 more days of PO Levaquin. 2. Sepsis: Hemodynamics uncomplicated during inpatient stay. Treated with IV fluids and antibiotics. Resolved 3. Diabetes: Continued to have AC glucose levels and fasting levels >150. Will change her Metformin to 500 MG BID. 4. Chronic anemia: Placed on ferrous gluconate 324 MG daily. Status at Discharge Functional status at discharge: uses cane/walker Overall status at discharge: patient is back to baseline Time Spent with Patient Greater than 30 minutes Exam Vital Signs (past 8 hours): Vital Signs - 8 hr 3 10/26/17 05:39 10/26/17 07:00 05/24/18 07:38 Temperature 97.9 F 98.1 F Pulse Rate 89 91 H Respiratory Rate 16 16 Blood Pressure 161/73 H 165/88 H Pulse Oximetry 99 96 98 Pulse Oximetry 98 Oxygen Delivery Method Room Air Oxygen Flow Rate 0 Narrative Exam Narrative: Patient states she is ready to be discharged. She denies bladder spasms, dysuria. Appetite decreased but taking po fluids well. Const General: cooperative, comfortable, well developed, well groomed and well hydrated Nutritional Appearance: overweight Orientation: alert, awake and oriented x3 HENMT Head: normal to inspection Eyes General: appearance normal, both eyes and all related structures Neck Neck: normal visual inspection Chest Chest: normal inspection of the chest Resp Effort & Inspection: normal respiratory effort and able to speak in complete sentences Auscultation: clear to auscultation bilaterally Cardio Rate: regular rate Heart Sounds: S1 normal and S2 normal Pulses: radial pulses present bilaterally 2+ GI Inspection: normal to inspection Palpation: soft Percussion: normal to percussion Auscultation: normal bowel sounds External Female Exam: urethral discharge (Mild hematuria) Back/Spine/Pelvis Back: normal to inspection Skin General: no rashes or lesions noted Lesions: no lesions Rashes: no rashes Hair: normal Nails: normal Neuro General: alert, awake, oriented x3 and moves all extremities Cognition: normal cognition Speech: speech normal Gait: normal gait Motor: muscle tone normal throughout Sensory Exam: no sensory deficits noted Extrem General: normal to inspection Psych Mental Status: mental status grossly normal Objective Labs Result Diagrams: 10/26/17 05:58 10/26/17 05:58 Labs: Laboratory Results - last 24 hr 10/26/17 10/26/17 05:58 05:58 WBC 15.1 H RBC 2.63 L Hgb 7.8 L Hct 22.4 L MCV 85.1 MCH 29.6 MCHC 34.8 RDW 14.1 Plt Count 345 Neut % (Auto) 83.6 H Lymph % (Auto) 10.3 L [place] % (Auto) 5.4 Eos % (Auto) 0.5 L Baso % (Auto) 0.2 Neut # (Auto) 79465 H Sodium 127 L Potassium 4.8 Chloride 100.0 Carbon Dioxide 18.0 L BUN 21.0 H Creatinine 1.10 H Estimated GFR 48.0 L BUN/Creatinine Ratio 19.1 Glucose 160 H Calcium 8.1 L Discharge Plan Discharge Plan Patient Disposition: Home, Self-Care Provider Discharge Instructions Diet: Carb-consistent/Diabetic Activity: As tolerated with walker Wound Care Report to your healthcare provider any signs of infection, such as:: chills, fever, night sweats, increased pain and unusual drainage Visit Report/Discharge Packet Visit Report Forms: Stroke Signs & Symptoms Discharge Data Attending Provider: Murali Araujo Admit Date/Time: 10/24/17 07:33 Discharges patient from system. Discharge Date/Time: 10/26/17 12:02 Quality VTE Deep Vein Thrombosis/Pulmonary Embolism Present on Admission: No
--- NOTE | 2017-10-26 09:45 | P.DS_ITS ---
History of Present Illness Date Patient Seen: 10/26/17 Time Patient Seen: 08:40 Chief complaint: Acute UTI, Sepsis Narrative: Claudine Rm is a 77 year old female visiting from [place]. She is visiting her family here she has been here for several months and is planning to return on November 04 she actually has a plane reservation already. She started having symptoms of frequency of urination fevers and increased confusion at home. Family brought her in here to the emergency room for evaluation and was found to have a urinary tract infection. She had her blood pressure dropped into the 80s and 90s for a while in the ER but was responsive to IV fluid resuscitation. She is more awake and alert now. She has been having fevers at home and some fevers here in the ER and here on the floor. Urine cultures were negativeShe was started on IV Levaquin and IV fluids. Discharge Providers Date of admission: 10/24/17 07:33 Consults: 10/24/17 06:53 Consult to Physician Routine Comment: Consulting Provider: Murali Araujo Reason for consultation: UTI, sepsis Has provider been notified: Yes 10/25/17 08:20 Consult to Physical Therapy Evaluate & Treat Comment: weakness Physician Instructions: Evaluate and Treat Discharge provider: DERECK Saxena Exam Vital Signs (past 8 hours): Vital Signs - 8 hr 3 10/26/17 05:39 10/26/17 07:00 10/26/17 07:38 Temperature 97.9 F 98.1 F Pulse Rate 89 91 H Respiratory Rate 16 16 Blood Pressure 161/73 H 165/88 H Pulse Oximetry 99 96 98 Pulse Oximetry 98 Oxygen Delivery Method Room Air Oxygen Flow Rate 0 Objective Labs Result Diagrams: 10/26/17 05:58 10/26/17 05:58 Labs: Laboratory Results - last 24 hr 10/26/17 10/26/17 05:58 05:58 WBC 15.1 H RBC 2.63 L Hgb 7.8 L Hct 22.4 L MCV 85.1 MCH 29.6 MCHC 34.8 RDW 14.1 Plt Count 345 Neut % (Auto) 83.6 H Lymph % (Auto) 10.3 L [place] % (Auto) 5.4 Eos % (Auto) 0.5 L Baso % (Auto) 0.2 Neut # (Auto) 34344 H Sodium 127 L Potassium 4.8 Chloride 100.0 Carbon Dioxide 18.0 L BUN 21.0 H Creatinine 1.10 H Estimated GFR 48.0 L BUN/Creatinine Ratio 19.1 Glucose 160 H Calcium 8.1 L Discharge Plan Discharge Plan Patient Disposition: Home, Self-Care Provider Discharge Instructions Diet: Carb-consistent/Diabetic Activity: As tolerated with walker Wound Care Report to your healthcare provider any signs of infection, such as:: chills, fever, night sweats, increased pain and unusual drainage Discharge Data Attending Provider: Murali Araujo Admit Date/Time: 10/24/17 07:33 Quality VTE Deep Vein Thrombosis/Pulmonary Embolism Present on Admission: No
== END 2017-10-26 12:02 | disposition home or self-care (01) ==
LOC: ED 10-24 06:57 → AC 10-24 07:34
PROVIDERS: Internal Medicine; Admitting Provider Internal Medicine; Emergency Provider Emergency Medicine; Visit Provider Internal Medicine
DX: N39.0 Urinary tract infection, site not specified (principal); E11.9 Type 2 diabetes mellitus without complications; Z79.84 Long term (current) use of oral hypoglycemic drugs; E86.0 Dehydration; E87.1 Hypo-osmolality and hyponatremia
CPT/HCPCS: 36415; 71045; 80048; 80053; 81001; 82962; 83605; 83690; 84145; 84484; 85025; 85610; 85730; 87040; 87086; 87186; 93005; 96361; 96365; 97110; 97116; 97161; 97530; 99285; G0378; J1650; J1956; J2405; J7050